=== PATIENT | female | born 1945 | race Two or more races ===

== ENCOUNTER → 2021-10-11 14:55 | Outpatient (BNVA) | payer OTHER, SELFPAY | PROVIDERS: Visit Provider Internal Medicine | DX: I10 Essential (primary) hypertension (principal); R41.89 Other symptoms and signs involving cognitive functions and awareness; I46.9 Cardiac arrest, cause unspecified | CPT/HCPCS: 93005; 99202 ==

== ENCOUNTER → 2021-12-22 10:04 | Outpatient (REF) | payer OTHER, MEDICAID, SELFPAY ==
--- NOTE | ~2021-12-22 | NM_ITS ---
Exercise Myocardial perfusion study Indication: Cardiac arrest to evaluate for myocardial ischemia Technique: The patient was brought in for an exercise perfusion study on 12/22/2021. Patient performed exercise as per Bhupinder protocol and was injected 25 mCi of sestamibi was given intravenously one target HR was achieved. Images were obtained using the SPECT gamma camera interlaced with the gating device. Images were obtained in supine position. Resting perfusion study was performed on 12/27/2021. Patient was administered 25 mCi of sestamibi intravenously at rest. Images were then obtained in supine position. Images obtained with and without CT attenuation. Total DLP 98 mGy-cm. Images were processed with the software and compared side to side in short axis, horizontal long axis and vertical long axis views. Findings: The stress perfusion study showed non attenuated images show normal uptake of radiotracer in all segments of LV myocardium. The gated study shows normal LV systolic function with calculated LVEF of 68%. LV cavity is normal in size. The gated study shows normal systolic wall thickening and contraction of all segments. There is no transient ischemic dilation. Resting study shows non attenuated images show normal uptake of radiotracer in all segments of LV myocardium. Gating at rest reveals normal systolic wall motion with ejection fraction at 71%. The findings are consistent with normal myocardial perfusion. NM/NM cardiolite stress test Impression: 1. Normal myocardial perfusion 2. Gated LVEF is 68% 3. Transient ischemic dilatation not present Stress EKG is negative for ischemia
--- NOTE | 2021-12-22 10:10 | CA_ITS ---
Acquisition Time: 2021-12-22 10:34:24 Total Exercise Time: 00:05:00 Test Indications: I46.9 - Cardiac arrest, cause u Medications: Protocol: RYAN Max HR: 142 BPM 97% of Pred: 146 BPM Max BP: 210/100 mmHG Max Work Load: 4.6 METS Exercise stress test with exercise 5 min of Ryan stage 1 acheiving 95% MPHR, 4.6 METs with mild sob, no chest discomfort, with isolated PVCs and two ventricular cuplets, with hypertensive response to exercise with max BP 210/100, without EKG changes meeting criteria for ischemia. In recovery her BP improved to 142/70 in recovery. Nuclear images pending. Test reviewed with Dr Santana. Referred By: Kiran Stewart Overread By: SD MACE
== END ==
LOC: HO.CARD 10:04
PROVIDERS: Visit Provider Internal Medicine
DX: I46.9 Cardiac arrest, cause unspecified (principal)
CPT/HCPCS: 78452; 93017; A9500; J0280; J2785

== ENCOUNTER → 2022-01-17 13:05 | Outpatient (REF) | payer OTHER, MEDICAID, SELFPAY ==
--- NOTE | 2022-01-17 13:08 | CA_ITS ---
Transthoracic Echocardiogram Patient (Last, First, Middle): Madalyn Blood, Gender: Female Date of : 1945 Age: 76 Procedure Date: 01/17/2022 Procedure Type: Transthoracic Echocardiogram Location: OP Height: 160.02 cm Weight: 77.11 kg BSA: 1.80 m2 Heart Rate: bpm BP: 122 / 84 mmHg Picture Painter: MIRA Referring MD: Kiran Stewart MD Symptoms: I46.9 - Cardiac arrest, cause unspecified Study Quality: Fair ECG Rhythm: Sinus Conclusions: - The left ventricular systolic function is normal. The calculated ejection fraction is 61% by biplane method. - No obvious valvular pathology seen on this study. Findings Left Ventricle Normal left ventricular cavity size. There is mildly increased left ventricular wall thickness. The left ventricular systolic function is normal. The calculated ejection fraction is 61% by biplane method. There is no evidence of regional wall motion abnormalities. Diastolic function is normal for age. Right Ventricle Normal right ventricular cavity size and systolic function. Atria Both atria are normal in size. Aortic Valve There is a normal trileaflet aortic valve. There is no aortic valve stenosis. There is no aortic valve regurgitation. Mitral Valve The mitral valve appears normal. There is trace mitral valve regurgitation. There is no mitral valve stenosis. Pulmonic Valve The pulmonic valve was not well visualized. Tricuspid Valve Normal tricuspid valve structure. There is trace tricuspid valve regurgitation. The pulmonary artery systolic pressure is normal. Great Vessels The aortic annulus, sinuses of valsalva, asc aorta, and aortic arch are normal in size. Venous The inferior vena cava is normal in size and collapses greater than 50% with inspiration. Pericardium/Pleural There is no evidence of pericardial effusion. Prior Study Comparison No prior study available for comparison. Recommendations, Care & Conclusions No obvious valvular pathology seen on this study. Measurements 2D Linear Measurements IVSd: 1.27 0.6-0.9/0.6-1.0 cm LVIDd: 4.01 3.9-5.3/4.2-5.9 cm LVIDd Index: 2.23 2.4-3.2/2.2-3.1 cm/m2 LVIDs: 2.28 2.0-3.6 cm LVPWd: 1.11 0.7-1.1 cm LA Diam: 3.00 2.7-3.8/3.0-4.0 cm LAIDs Index: 1.67 1.5-2.3 cm/m2 LV Mass: 204.29 67-162/88-224 g LV Mass Index: 113.50 43-95/49-115 g/m2 LVOT Diam: 2.00 3.0+(-)1.3 cm 2D Systolic Function EF 4C: 60.90 >55% EF 2C: 62.50 >55% EF BiP: 61.30 >55% Mitral Valve MV Pk E: 0.87 MV PK A: 0.85 MV Decel Time: 261.00 E/A: 1.00 E'Lateral: 6.20 E'Medial: 4.46 E/E' Med: 19.50 E/E' Lat: 14.00 PHT: 76.00 MVA PHT: 2.89 Decel Mcclain: 3.34 Aortic Valve AoV Pk Filiberto: 1.30 AoV Mn Filiberto: 1.01 AoV VTI: 0.30 AoV Pk Grad: 7.00 Aov Mn Grad: 4.00 CHARLES Cont.VTI: 2.74 LVOT LVOT Pk Filiberto: 1.14 LVOT Mn Filiberto: 0.81 LVOT VTI: 0.26 LVOT Pk Grad: 5.00 LVOT Mn Grad: 3.00 LVOT Diam: 2.00 LVOT Area: 3.14 Diastolic Function MV Pk E: 0.87 MV Pk A: 0.85 E/A: 1.00 E'Medial: 4.46 E/E' Med: 19.50 E' Laterial: 6.20 E/E' Lat: 14.00 Right Ventricle TAPSE (mm): 24.20 TVS' Filiberto: 12.40 Tricuspid Valve TR Pk Filiberto: 2.50 TR Pk Grad: 25.00 RA Press: 3.00 RVSP: 28.00 Great Vessels Aorta Sinus of Valsalva: 3.02 2.0-3.[address] Ridge: 2.48 1.7-3.4 cm Ao Asc: 3.20 2.1-3.4 cm Ao Arch: 2.90 Updated in Other Vendor System with Status of Final Kiran Stewart MD electronically signed on 01/19/2022 12:37:10 PM with status of Final
== END ==
LOC: HO.CARD 13:05
PROVIDERS: Visit Provider Internal Medicine
DX: I46.9 Cardiac arrest, cause unspecified (principal)
CPT/HCPCS: 93306

== ENCOUNTER → 2022-01-24 12:49 | Outpatient (BNVA) | payer OTHER, MEDICAID, SELFPAY | PROVIDERS: Visit Provider Internal Medicine | DX: R41.89 Other symptoms and signs involving cognitive functions and awareness (principal); I10 Essential (primary) hypertension; E11.8 Type 2 diabetes mellitus with unspecified complications | CPT/HCPCS: 99212 ==

== ENCOUNTER → 2022-02-02 11:52 | Outpatient (REF) | payer OTHER, MEDICAID, SELFPAY ==
--- NOTE | 2022-02-02 11:55 | HM_ITS ---
Conclusion: 1. Patient was monitored for total period of 5 days and 23 hours 2. Baseline was normal sinus rhythm with average heart rate of 64 beats per minute 3. No significant pauses or bradycardia noted 4. Rare ectopics noted 5. No patient reported events MTDD
== END ==
LOC: HO.CARD 11:52
PROVIDERS: Visit Provider Internal Medicine
DX: R41.89 Other symptoms and signs involving cognitive functions and awareness (principal); R55 Syncope and collapse
CPT/HCPCS: 93242